=== PATIENT | male | born 2000 | race Caucasian/White ===

== ENCOUNTER 2019-05-20 19:44 | Emergency (ER) | payer BC ==
[2019-05-20 19:51] VITALS: RESP 16; TEMP 98.2
[2019-05-20] MEDS ORDERED: LIDOCAINE 1% INJ 10MG/ML (20 ML MDV) SQ STA (20:04)
--- NOTE | 2019-05-20 20:29 | XR ---
EXAMINATION TYPE: XR tibia fibula LT DATE OF EXAM: 05/20/2019 COMPARISON: NONE HISTORY: Laceration. Pain. TECHNIQUE: 2 views FINDINGS: There is intramedullary linda in the tibia fixing an old fracture of the small shaft. There i s a plate with screws on the lateral aspect of the proximal tibia also. Ankle mortise is anatomic. Th e fibula appears intact. I see no acute fracture nor dislocation. IMPRESSION: Old healed fracture. No acute fracture seen.
[2019-05-20] MEDS ORDERED: CEPHALEXIN 500MG STARTER PACK 4 CAP BTL PO STA (21:20)
[2019-05-20] MEDS ORDERED: CEPHALEXIN 500 MG CAP PO STA (21:20)
--- NOTE | 2019-05-20 21:26 | ED ---
General Adult HPI - General Source: patient, RN notes reviewed, old records reviewed Mode of arrival: ambulatory Limitations: no limitations <Rah Light - Last Filed: 05/20/19 21:21> <Carla Simpson - Last Filed: 05/23/19 01:01> - General Chief complaint: Wound/Laceration Stated complaint: left leg laceration Time Seen by Provider: 05/20/19 19:55 - History of Present Illness Initial comments: 19-year-old male patient in the chief complaint of laceration to left anterior tib-fib. Patient reports he is using a hammer, was using to hit wood, had a piece of rotting would causing him to carry through hitting his left anterior tib-fib region. Patient was wearing pants. Patient tetanus up-to-date. Patient has a history of tibia fracture approximately 3 years ago for which she has hardware in place. Denies any other complaints. Systemic: Pt denies fatigue, fever/chills, rash. Pt denies weakness, night sweats, weight loss. Neuro: Pt denies headache, visual disturbances, syncope or pre-syncope. HEENT: Pt denies ocular discharge or irritation, otalgia, rhinorrhea, pharyngitis or notable lymphadenopathy. Cardiopulmonary: Pt denies chest pain, SOB, heart palpitations, dyspnea on exertion. Abdominal/GI: Pt denies abdominal pain, n/v/d. : Pt denies dysuria, burning w/ urination, frequency/urgency. Denies new onset urinary or bowel incontinence. MSK: Pt denies myalgia, loss of strength or function in extremities. Neuro: Pt denies new onset weakness, paresthesias. (Rah Light) - Related Data Home Medications Medication Instructions Recorded Confirmed Ibuprofen [Motrin] 1 tab PO DIRECTED 05/17/15 05/17/15 Previous Rx's Medication Instructions Recorded Cephalexin [Keflex] 500 mg PO Q6HR 3 Days #12 cap 05/20/19 Allergies Allergy/AdvReac Type Severity Reaction Status Date / Time nitrofurantoin Allergy Swelling Verified 05/20/19 19:50 [From Macrobid] povidone-iodine Allergy Swelling Verified 05/20/19 19:49 [From Betadine] soap [From Betadine] Allergy Swelling Verified 05/20/19 19:49 Tetanus Vaccines and Toxoid Allergy Swelling Verified 05/20/19 19:49 [Tetanus Vaccines & Toxoid] Review of Systems ROS Other: All systems not noted in ROS Statement are negative. <Rah Light - Last Filed: 05/20/19 21:21> ROS Other: All systems not noted in ROS Statement are negative. <Carla Simpson - Last Filed: 05/23/19 01:01> ROS Statement: Those systems with pertinent positive or pertinent negative responses have been documented in the HPI. Past Medical History Past Medical History: Asthma Additional Past Medical History / Comment(s): eosinophyllis esophagitis History of Any Multi-Drug Resistant Organisms: None Reported Past Surgical History: Orthopedic Surgery Additional Past Surgical History / Comment(s): endoscopy, left leg surgery with rods and screws, skin graft to left leg Past Psychological History: No Psychological Hx Reported Smoking Status: Never smoker Past Alcohol Use History: None Reported Past Drug Use History: Marijuana <Rah Light - Last Filed: 05/20/19 21:21> General Exam Limitations: no limitations <Rah Light - Last Filed: 05/20/19 21:21> - General Exam Comments Initial Comments: Constitutional: NAD, AOX3, Pt has pleasant affect. HEENT: NC/AT, trachea midline, neck supple, no lymphadenopathy. Posterior pharynx non erythematous, without exudates. External ears appear normal, without discharge. Mucous membranes moist. Eyes PERRLA, EOM intact. There is no scleral icterus. No pallor noted. Cardiopulmonary: RRR, no murmurs, rubs or gallops, no JVD noted. Lungs CTAB in anterior and posterior bergeron. No peripheral edema. Abdominal exam: Abdomen soft and non-distended. Abdomen non-tender to palpation in all 4 quadrants. Bowel sounds active in LLQ. No hepatosplenomegaly. No ecchymosis Neuro: CN II-XII grossly intact. No nuchal rigidity. No raccon eyes, no grace sign, no hemotympanum. No cervical spinal tenderness. MSK: 2 centimeter left laceration left anterior tib-fib region. Vigorously irrigated. Approximately 2 simple interrupted sutures. No posterior calf tenderness bilaterally, homans sign negative bilaterally. Posterior tibialis and radial pulse +2 bilaterally. Sensation intact in upper and lower extremities. Full active ROM in upper and lower extremities, 5/5 stregnth. (Rah Light) Course Vital Signs 05/20/19 05/20/19 19:46 21:54 Temperature 98.2 F 98.2 F Pulse Rate 87 88 Respiratory 16 16 Rate Blood Pressure 134/85 130/59 O2 Sat by Pulse 100 99 Oximetry Procedures - Laceration Laceration #1 Consent Obtained: verbal consent Indication: laceration Site: lower extremity Size (cm): 2 Description: linear Depth: simple, single layer Anesthetic Used: lidocaine 1% Anesthesia Technique: local infiltration Amount (mls): 2 Pre-repair: wound explored, irrigated extensively Type of Sutures: nylon Size of Sutures: 5-0 Number of Sutures: 2 Technique: simple, interrupted Patient Tolerated Procedure: well, no complications <Rah Light - Last Filed: 05/20/19 21:21> Medical Decision Making <Rah Light - Last Filed: 05/20/19 21:21> <Carla Simpson - Last Filed: 05/23/19 01:01> - Medical Decision Making 19-year-old male patient with the chief complaint of laceration to left anterior leg. Patient vital signs stable, afebrile. Physical exam is pretty centimeter laceration. Plain films displayed old healed fracture. Patient tetanus up-to-date. Laceration vigorously irrigated, approximately 2 simple interrupted sutures. Patient discharged with return precautions and prophylactic Keflex. Case discussed with Dr. Simpson. (Rah Light) I was available for consultation in the emergency department. The history and physical exam were done by the midlevel provider. I was consulted for this patient's care. I reviewed the case with the midlevel provider and based on their presentation of the patient, I agree with the assessment, medical decision making and plan of care as documented. Chart was dictated using [employer] dictation software. Attempts were made to correct any dictation errors however some typographical errors may persist. (Carla Simpson) Disposition Is patient prescribed a controlled substance at d/c from ED?: No <Rah Light - Last Filed: 05/20/19 21:21> <Carla Simpson - Last Filed: 05/23/19 01:01> Clinical Impression: Laceration Disposition: HOME SELF-CARE Condition: Stable Instructions (If sedation given, give patient instructions): Laceration (ED) Additional Instructions: Patient to adhere to previously discussed treatment plan and will take medication(s) as directed. Patient to follow up with PCP in 1-2 days. Patient to return to ED if symptoms do not improve. Please return for suture removal: Hand: 7-10 days Face: 5 days Chest/abdomen: 12-14 days Extremities: 7-10 days Scalp: 7 days Eyebrow: 5-7 days Foot/sole: 12-14 days Please monitor for signs and symptoms of infection including: redness, warmth, drainage, discharge. Please return to ED if these signs or symptoms occur, new signs or symptoms develop or if condition worsens in anyway. Prescriptions: Cephalexin [Keflex] 500 mg PO Q6HR 3 Days #12 cap Referrals: Aldair Kilpatrick DO [Primary Care Provider] - 1-2 days
[2019-05-20 21:55] VITALS: BP 130/59; PULSE 88
== END 2019-05-20 21:54 | disposition home or self-care (01) ==
LOC: EC 19:44
DX: S81.812A Laceration without foreign body, left lower leg, initial encounter (principal); Z88.1 Allergy status to other antibiotic agents; Z88.7 Allergy status to serum and vaccine; Z91.048 Other nonmedicinal substance allergy status; Z87.81 Personal history of (healed) traumatic fracture; Z96.698 Presence of other orthopedic joint implants; W22.8XXA Striking against or struck by other objects, initial encounter; Y93.89 Activity, other specified
CPT/HCPCS: 73590; 99283; 12001; J2001

== ENCOUNTER → 2020-08-28 | Outpatient (CLI) | payer BC ==
--- NOTE | 2020-08-28 17:11 | XR ---
Right shoulder HISTORY: Right shoulder pain 3 views the right shoulder Bone mineralization, joint spaces are maintained. Question some slight superior migration of the dist al clavicle in relation to the acromion. Right lung apex as visualized is normal. IMPRESSION: Correlate for acromial clavicular separation.
== END | disposition home or self-care (01) ==
LOC: RADXRYALE 14:53
PROVIDERS: ATTEND Physician Assistant Medical
DX: M25.511 Pain in right shoulder (principal)

== ENCOUNTER → 2022-06-18 | Outpatient (CLI) | payer BC ==
--- NOTE | 2022-06-18 14:56 | USB ---
Reason for Exam: Clinical finding. Patient History: Maternal aunt had breast cancer under age 50. Technique: Method: Targeted. Findings: The area of palpable concern of the left breast and the retroareolar of the left breast were scanned. There is a hypoechoic flame like area posterior to the left nipple. This is larger than the right but can be compatible with gynecomastia. Short-term follow-up in 3 months is recommended. Earlier reevaluation can be performed if this continues to increase in size. Correlate for substances which can be associated with gynecomastia. Overall Assessment: Probably benign, BI-RAD 3 Management: Diagnostic Breast Ultrasound of the left breast in 3 months. A clinical breast exam by your physician is recommended on an annual basis and results should be correlated with mammographic findings. This exam should not preclude additional follow-up of suspicious palpable abnormalities. ??Results were given to the patient verbally at the time of exam. Electronically signed and approved by: Biju Sequeira D.O. Radiologis
--- NOTE | 2022-06-18 16:17 | MM ---
Reason for Exam: Clinical finding. Baseline mammogram. Patient History: Maternal aunt had breast cancer under age 50. Prior Study Comparison: Patient's first Mammogram. Tissue Density: The breast tissue is heterogeneously dense. This may lower the sensitivity of mammography. Findings: Analyzed By CAD. There are asymmetric densities within the subareolar bilateral breast. This is larger on the left corresponding to the palpable area. No suspicious groups of microcalcifications, spiculated or lobular masses, architectural distortion or other secondary signs of malignancy are mammographically apparent. Overall Assessment: Incomplete: need additional imaging evaluation, BI-RAD 0 Management: Diagnostic Breast Ultrasound of the left breast. A negative mammogram report should not preclude additional follow up of suspicious palpable abnormalities. Patient should continue monthly self breast exam. A clinical breast exam by your physician is recommended on an annual basis and results should be correlated with mammographic findings. Electronically signed and approved by: Biju Sequeira D.O. Radiologis
== END | disposition home or self-care (01) ==
LOC: RADMAMWWP 13:43
PROVIDERS: ATTEND Family Medicine
DX: N63.42 Unspecified lump in left breast, subareolar (principal); Z80.3 Family history of malignant neoplasm of breast
CPT/HCPCS: 77066

== ENCOUNTER → 2023-07-16 | Outpatient (CLI) | payer BC ==
--- NOTE | 2023-07-17 18:23 | MR ---
EXAMINATION: MR tib fib LT wo con DATE OF EXAM: 07/16/2023 COMPARISON: Left tibia and fibular radiograph 05/20/2019 HISTORY: Left lower leg pain, swelling and redness, Hx of fracture 2020 pt had hardware removed due to infection, Wound not healing, marked open wound area with a marker front of apple TECHNIQUE: Multiplanar, multisequence images of the left lower leg were acquired without contrast. FINDINGS: BONES/MARROW: Remote healed fracture deformity proximal tibia. Evidence of a prior intramedullary bethanie l as well as lateral buttress plate; these hardware have been removed. Abnormal fluid signal is prese nt throughout the majority of the sinus tract. At the skin marker at the anterior mid tibia, there is a draining sinus tract extending to the skin surface, originating from the ghost screw tract in the tibia intramedullary canal, dense sclerosis of the adjacent tibia. SOFT TISSUES: Myotendinous structures are normal. No anatomic variant. No bursal distention. No fluid collection. NEUROVASCULAR: Visualized neurovascular structures are normal. OTHER: Normal. No mass. No lymphadenopathy. 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 Sequestrum and draining cloaca at the level of the skin marker.
== END | disposition home or self-care (01) ==
LOC: RADMRIMAIN 19:15
PROVIDERS: ATTEND Specialist
DX: M86.662 Other chronic osteomyelitis, left tibia and fibula (principal)